=== PATIENT | female | born 1955 | race Caucasian/White ===

== ENCOUNTER → 2018-02-18 14:02 | Outpatient (REF) | payer BC, SELFPAY ==
[2018-02-18 18:38] LABS: Amphetamine/Metha Screen,Urine Negative ng/mL (<1000); Barbiturates Screen,Urine Negative ng/mL (<200); Benzodiazepines Screen,Urine Negative ng/mL (<200); Cannabinoid Screen,Urine Negative ng/mL (<50); Cocaine Screen,Urine Negative ng/mL (<300); Methadone Screen,Urine Negative ng/mL (<300); Opiate Screen,Urine Positive ng/mL (<300); Phencyclidine Screen,Urine Negative ng/mL (<25)
== END ==
LOC: LAB 14:02
PROVIDERS: Visit Provider Emergency Medicine
DX: Z79.899 Other long term (current) drug therapy (principal)
CPT/HCPCS: 80305

== ENCOUNTER → 2018-06-03 17:56 | Outpatient (CLI) | payer BC, SELFPAY ==
[2018-06-03 18:44] LABS: Basophils # 0.1 K/mm3 (0-0.2); Eosinophils # 0.2 K/mm3 (0.0-0.4); Eosinophils % 2.1 % (0.1-12.0); Hematocrit 41.5 % (37.0-47.0); Hemoglobin 13.4 g/dL (12.2-16.2); Lymphocytes # 1.8 K/mm3 (0.7-4.5); Lymphocytes % 20.4 % (10-50); Mean Corpuscular HGB Conc 32.3 g/dL (31.8-35.4); Mean Corpuscular Hemoglobin 30.2 pg (27.0-31.2); Mean Corpuscular Volume 93.5 fl (81-99); Mean Platelet Volume 8.6 fl (7.4-10.4); Monocytes # 0.5 K/mm3 (0.1-1.0); Monocytes % 5.2 % (1.7-9.3); Neutrophils # 6.2 K/mm3 (1.8-7.8); Neutrophils % 71.4 % (37.0-80.0); Platelet Count 291 K/mm3 (142-424); Red Blood Count 4.44 M/mm3 (4.20-5.40); Red Cell Distribution Width 17.5 % (11.5-17.5); White Blood Count 8.6 K/mm3 (4.8-10.8)
[2018-06-03 19:36] LABS: Alanine Aminotransferase 52 U/L (12-78); Albumin Level 3.9 gm/dL (3.4-5.0); Albumin/Globulin Ratio 1.1 (1.1-1.8); Alkaline Phosphatase 114 U/L (46-116); Anion Gap 16.5 mEq/L (5-15); Aspartate Amino Transferase 27 U/L (15-37); Bilirubin,Total 1.1 mg/dL (0.2-1.0); Blood Urea Nitrogen 34 mg/dL (7-18); Calcium 9.1 mg/dL (8.5-10.1); Carbon Dioxide 26 mmol/L (21.0-32.0); Chloride 102 mmol/L (98-107); Chol/HDL Ratio 5.4 (1-3.5); Cholesterol 125 mg/dL (140-200); Creatinine,Serum 1.63 mg/dL (0.55-1.02); Estimated Glomerular Filt Rate 32 ml/min (>60); Free T4 (Free Thyroxine) 1.06 ng/dl (0.76-1.46); GFR (African American) 38 ML/MIN (>60); Globulin 3.4 gm/dl (1.3-3.2); Glucose 125 mg/dL (74-106); HDL Cholesterol 23 mg/dL (29-89); Hemoglobin A1C 5.9 % (0.0-7.0); LDL Cholesterol 40 mg/dL (0-130); Potassium 4.5 mmoL/L (3.5-5.1); Sodium 140 mmol/L (136-145); Thyroid Stimulating Hormone 2.35 uIU/ml (0.358-3.740); Total Protein,Serum 7.3 gm/dL (6.4-8.2); Triglycerides 311 mg/dL (30-200); VLDL Cholesterol 62 mg/dL (0-40)
[2018-06-03 19:45] LABS: Amphetamine/Metha Screen,Urine Negative ng/mL (<1000); Barbiturates Screen,Urine Negative ng/mL (<200); Benzodiazepines Screen,Urine Negative ng/mL (<200); Cannabinoid Screen,Urine Negative ng/mL (<50); Cocaine Screen,Urine Negative ng/mL (<300); Methadone Screen,Urine Negative ng/mL (<300); Opiate Screen,Urine Positive ng/mL (<300); Phencyclidine Screen,Urine Negative ng/mL (<25)
[2018-06-05 06:40] LABS: Creatinine, Urine 62.3 mg/dL (Not Estab.); Microalbumin, Urine 11.4 ug/mL (Not Estab.)
[2018-06-06 08:22] LABS: Vitamin D 25 Hydroxy 20.3 ng/mL (30.0-100.0)
== END ==
PROVIDERS: Visit Provider Emergency Medicine
DX: E11.9 Type 2 diabetes mellitus without complications (principal); Z79.899 Other long term (current) drug therapy; E55.9 Vitamin D deficiency, unspecified
CPT/HCPCS: 80053; 80061; 80305; 82043; 82570; 82652; 83036; 84439; 84443; 85025

== ENCOUNTER → 2018-07-08 14:38 | Outpatient (CLI) | payer BC, SELFPAY ==
--- NOTE | 2018-07-08 14:41 | MR_ITS ---
MR lumbar spine wo con, MR 3-d myelogram/MRCP HISTORY: Low back pain X years. Pain is across low back. ITS.REASON: back pain ORDERING PHYSICIAN: Ferdinand Stapleton MD PATIENT AGE: 62 years Comparison: None TECHNIQUE: Standard multiplanar multiecho sequences are performed without contrast. 3-D MIP and myelographic images are also rendered and reviewed FINDINGS: There is normal alignment. The spinal cord ends at the L1-L2 level. T11-T12: Unremarkable. T12-L1: Mild degenerative disc disease with minimal bulging disc. L1-L2: Unremarkable. L2-L3: Minimal bulging disc L3-L4: Unremarkable. L4-5: Unremarkable. L5-S1: Unremarkable. IMPRESSION: 1. Mild degenerative disc disease at T12-L1 and L2-L3 with minimal bulging disc 2. No disc herniation or canal stenosis or other significant anomalies.
== END ==
PROVIDERS: PCP Emergency Medicine; Visit Provider Emergency Medicine
DX: M54.5 Low back pain (principal)
CPT/HCPCS: 72148; 76376

== ENCOUNTER → 2018-08-17 15:00 | Outpatient (CLI) | payer BC, SELFPAY ==
[2018-08-17 22:28] LABS: Amphetamine/Metha Screen,Urine Negative ng/mL (<1000); Barbiturates Screen,Urine Negative ng/mL (<200); Benzodiazepines Screen,Urine Negative ng/mL (<200); Cannabinoid Screen,Urine Negative ng/mL (<50); Cocaine Screen,Urine Negative ng/mL (<300); Methadone Screen,Urine Negative ng/mL (<300); Opiate Screen,Urine Positive ng/mL (<300); Phencyclidine Screen,Urine Negative ng/mL (<25)
[2018-08-19 17:20] LABS: Microalbumin, Urine 11.9 ug/mL (Not Estab.)
== END ==
PROVIDERS: Visit Provider Emergency Medicine
DX: Z79.899 Other long term (current) drug therapy (principal); E11.9 Type 2 diabetes mellitus without complications; Z79.4 Long term (current) use of insulin
CPT/HCPCS: 80305; 82043

== ENCOUNTER → 2018-09-14 16:33 | Outpatient (CLI) | payer BC, SELFPAY ==
--- NOTE | 2018-09-14 16:35 | MM_ITS ---
MM Dig screening mamm BI w/CAD ORDERING PHYSICIAN : Ferdinand Stapleton MD PATIENT AGE: 62 years GENDER: Female COMPARISON: [facility] mammograms 12/28/2014 February 08, 2017 & 12/31/2015 INDICATION: . Routine screening mammogram. No new complaints. No hormones Patient notes history of Previous abscess. Medial Left breast. Family history. Noncontributory TECHNIQUE: Standard CC and MLO images were obtained. R2 CAD reviewed. Additional CC axillary cc view and cc nipple profile views bilateral FINDINGS: . Moderate density breast. Mild heterogeneous. Mild asymmetry Scattered moderate density fibroglandular elements elements most evident towards superior breast and upper outer quadrant. Similar Overall parenchymal pattern to previous study. RIGHT BREAST:No new findings of significant concern. . Scattered areas of asymmetric density are similar to multiple previous studies. Follow-up right mammogram 1 year adequate. LEFT BREAST: Similar overall parenchymal pattern. However I would note incrementally larger 12.3 mm ovoid density lateral retroareolar region which is perhaps slightly more apparent.- But this may be due to the distal CC projections today which visualizes area to better advantage. . I believe round density has been present on studies dating back to 2013.... Thus Likely reflects a slight enlarging cyst or prominent duct. Would suggest ultrasound to further evaluate along with spot CC and MLO and 90 degrees view left breast. Attempted to evaluate since no previous ultrasounds available IMPRESSION: Left breast 12.3 mm ovoid density at the lateral retroareolar region on cc view. This likely benign features appears perhaps incrementally larger & overall slightly more evident than previous studies.- Suspect benign cyst. ... But would suggest ultrasound and spot views to further evaluate . Right breast Stable right mammogram. No new findings . BI-RADS Category: 0 Need Additional Imaging Evaluation RECOMMENDED FOLLOW-UP: IMM - IMMEDIATE FOLLOW-UP RECOMMENDED (A letter has been sent to the patient regarding results of the study.)
== END ==
PROVIDERS: PCP Emergency Medicine; Visit Provider Emergency Medicine
DX: Z12.31 Encounter for screening mammogram for malignant neoplasm of breast (principal)
CPT/HCPCS: 77067

== ENCOUNTER → 2018-09-14 17:04 | Outpatient (CLI) | payer BC, SELFPAY ==
[2018-09-14 19:00] LABS: Anion Gap 16.2 mEq/L (5-15); Blood Urea Nitrogen 33 mg/dL (7-18); Calcium 9.5 mg/dL (8.5-10.1); Carbon Dioxide 26 mmol/L (21.0-32.0); Chloride 101 mmol/L (98-107); Creatinine,Serum 1.69 mg/dL (0.55-1.02); Estimated Glomerular Filt Rate 30 ml/min (>60); GFR (African American) 37 ML/MIN (>60); Glucose 146 mg/dL (74-106); Potassium 4.2 mmoL/L (3.5-5.1); Sodium 139 mmol/L (136-145)
== END ==
PROVIDERS: Visit Provider Emergency Medicine
DX: E11.9 Type 2 diabetes mellitus without complications (principal); N28.9 Disorder of kidney and ureter, unspecified; Z79.84 Long term (current) use of oral hypoglycemic drugs
CPT/HCPCS: 36415; 80048

== ENCOUNTER → 2018-11-08 14:21 | Outpatient (CLI) | payer BC, SELFPAY ==
[2018-11-08 14:50] LABS: Amphetamine/Metha Screen,Urine Negative ng/mL (<1000); Barbiturates Screen,Urine Negative ng/mL (<200); Benzodiazepines Screen,Urine Negative ng/mL (<200); Cannabinoid Screen,Urine Negative ng/mL (<50); Cocaine Screen,Urine Negative ng/mL (<300); Methadone Screen,Urine Negative ng/mL (<300); Opiate Screen,Urine Positive ng/mL (<300); Phencyclidine Screen,Urine Negative ng/mL (<25)
== END ==
PROVIDERS: Visit Provider Nurse Practitioner Family
DX: Z79.899 Other long term (current) drug therapy (principal)
CPT/HCPCS: 80305

== ENCOUNTER → 2018-11-18 11:37 | Outpatient (CLI) | payer MEDICARE, BC, SELFPAY ==
--- NOTE | 2018-11-18 11:38 | MM_ITS ---
MM Dig mamm DX unilat LT CAD, US breast LT complete INDICATION: Follow-up abnormal mammogram, left breast nodule ORDERING PHYSICIAN: Ferdinand Stapleton MD PATIENT AGE: 62 years COMPARISON: 09/14/2018, 08/18/2017 TECHNIQUE: Problem-solving views of the left breast along with left breast ultrasound FINDINGS: There is a 10 mm rounded nodule within the lateral periareolar region of the left breast at about 2:00. No abnormal calcifications. The margins are slightly obscured medially and inferiorly. Left breast ultrasound: There is a well-circumscribed oval nodule at 1:00 measuring 10 x 10 x 0.4 cm corresponding to the mammographic abnormality. This has some low-level internal echoes but enhanced through transmission of sound and is well-circumscribed and is parallel to the chest wall. The questionable low level echoes could be due to reverberation artifact. This represents a complex cyst or fibroadenoma and has benign features. The nodule is however slightly increased in size compared to older exams. IMPRESSION: Mammographic nodule in the lateral aspect of left breast is felt to represent either a complex cyst or fibroadenoma. Recommend 6 month follow-up due to slight increase in size BI-RADS Category: 3 Probably Benign Finding Short Term Follow-up RECOMMENDED FOLLOW-UP: 6M - 6 MONTH FOLLOW-UP (A letter has been sent to the patient regarding results of the study.)
== END ==
PROVIDERS: PCP Emergency Medicine; Visit Provider Emergency Medicine
DX: R92.8 Other abnormal and inconclusive findings on diagnostic imaging of breast (principal)
CPT/HCPCS: 76641; 77065

== ENCOUNTER → 2019-01-06 17:25 | Outpatient (CLI) | payer MEDICARE, SELFPAY ==
[2019-01-06 18:02] LABS: Basophils # 0.1 K/mm3 (0-0.2); Basophils % 1.1 % (0.1-2.0); Eosinophils # 0.2 K/mm3 (0.0-0.4); Eosinophils % 3.1 % (0.1-12.0); Hematocrit 40.1 % (37.0-47.0); Hemoglobin 13.3 g/dL (12.2-16.2); Lymphocytes # 1.5 K/mm3 (0.7-4.5); Lymphocytes % 25.6 % (10-50); Mean Corpuscular HGB Conc 33.3 g/dL (31.8-35.4); Mean Corpuscular Hemoglobin 31.2 pg (27.0-31.2); Mean Corpuscular Volume 93.7 fl (81-99); Mean Platelet Volume 8.3 fl (7.4-10.4); Monocytes # 0.4 K/mm3 (0.1-1.0); Monocytes % 6.2 % (1.7-9.3); Neutrophils # 3.7 K/mm3 (1.8-7.8); Neutrophils % 64.1 % (37.0-80.0); Platelet Count 263 K/mm3 (142-424); Red Blood Count 4.28 M/mm3 (4.20-5.40); Red Cell Distribution Width 17.3 % (11.5-17.5); White Blood Count 5.8 K/mm3 (4.8-10.8)
[2019-01-06 18:08] LABS: Anion Gap 12.2 mEq/L (5-15); Blood Urea Nitrogen 43 mg/dL (7-18); Calcium 9.6 mg/dL (8.5-10.1); Carbon Dioxide 28 mmol/L (21.0-32.0); Chloride 104 mmol/L (98-107); Creatinine,Serum 2.14 mg/dL (0.55-1.02); Estimated Glomerular Filt Rate 23 ml/min (>60); GFR (African American) 28 ML/MIN (>60); Glucose 168 mg/dL (74-106); Potassium 5.2 mmoL/L (3.5-5.1); Sodium 139 mmol/L (136-145)
[2019-01-06 18:58] LABS: Amphetamine/Metha Screen,Urine Negative ng/mL (<1000); Barbiturates Screen,Urine Negative ng/mL (<200); Benzodiazepines Screen,Urine Negative ng/mL (<200); Cannabinoid Screen,Urine Negative ng/mL (<50); Cocaine Screen,Urine Negative ng/mL (<300); Methadone Screen,Urine Negative ng/mL (<300); Opiate Screen,Urine Positive ng/mL (<300); Phencyclidine Screen,Urine Negative ng/mL (<25)
== END ==
PROVIDERS: Visit Provider Emergency Medicine
DX: E11.9 Type 2 diabetes mellitus without complications (principal); M54.5 Low back pain; Z79.84 Long term (current) use of oral hypoglycemic drugs
CPT/HCPCS: 80048; 80305; 83036; 85025

== ENCOUNTER → 2019-01-11 11:26 | Outpatient (CLI) | payer MEDICARE, SELFPAY ==
[2019-01-11 13:34] LABS: Anion Gap 14.4 mEq/L (5-15); Blood Urea Nitrogen 31 mg/dL (7-18); Calcium 9.6 mg/dL (8.5-10.1); Carbon Dioxide 27 mmol/L (21.0-32.0); Chloride 104 mmol/L (98-107); Creatinine,Serum 1.53 mg/dL (0.55-1.02); Estimated Glomerular Filt Rate 34 ml/min (>60); GFR (African American) 41 ML/MIN (>60); Glucose 145 mg/dL (74-106); Potassium 4.4 mmoL/L (3.5-5.1); Sodium 141 mmol/L (136-145)
== END ==
PROVIDERS: Visit Provider Physician Assistant
DX: E87.5 Hyperkalemia (principal); R79.89 Other specified abnormal findings of blood chemistry
CPT/HCPCS: 36415; 80048

== ENCOUNTER → 2019-02-13 17:59 | Outpatient (CLI) | payer MEDICARE, SELFPAY ==
[2019-02-13 19:05] LABS: Anion Gap 16.5 mEq/L (5-15); Blood Urea Nitrogen 27 mg/dL (7-18); Calcium 9.2 mg/dL (8.5-10.1); Carbon Dioxide 23 mmol/L (21.0-32.0); Chloride 104 mmol/L (98-107); Creatinine,Serum 1.34 mg/dL (0.55-1.02); Estimated Glomerular Filt Rate 40 ml/min (>60); GFR (African American) 48 ML/MIN (>60); Glucose 119 mg/dL (74-106); Potassium 4.5 mmoL/L (3.5-5.1); Sodium 139 mmol/L (136-145)
== END ==
PROVIDERS: Visit Provider Emergency Medicine
DX: R79.89 Other specified abnormal findings of blood chemistry (principal)
CPT/HCPCS: 80048

== ENCOUNTER → 2019-03-10 15:54 | Outpatient (CLI) | payer MEDICARE, MEDICAID, SELFPAY ==
--- NOTE | 2019-03-10 15:58 | XR_ITS ---
PROCEDURE: XR KNEE RT 3V CLINICAL INDICATION: knee COMPARISON: No exams were available for comparison FINDINGS: No fracture or dislocation. No lytic or blastic change. There is normal mineralization. There are mild osteoarthritic changes of the medial compartment and patellofemoral joint. There is a small loose body along the anterior joint space medially measuring 5-6 mm. Other findings:None. IMPRESSION: Mild osteoarthritis with suspected loose body medially Dictated by: Brian Jett MD 03/10/2019 16:33 Electronically signed by Brian Jett MD in [place] 03/10/2019 16:33
== END ==
PROVIDERS: PCP Nurse Practitioner Family; Visit Provider Nurse Practitioner Family
DX: M25.561 Pain in right knee (principal)
CPT/HCPCS: 73562

== ENCOUNTER → 2019-04-07 11:19 | Outpatient (CLI) | payer MEDICARE, MEDICAID, SELFPAY ==
--- NOTE | 2019-04-07 11:23 | XR_ITS ---
PROCEDURE: XR KNEE RT 4V CLINICAL INDICATION: Rt knee pain COMPARISON: XR KNEE RT 3V from 03/10/2019 FINDINGS: No fracture or dislocation. No lytic or blastic change. There is normal mineralization. There are mild osteoarthritic changes involving all 3 compartments. There is a small osteophyte versus loose body along the anterior aspect of the tibia. There is mild generalized vascular calcification IMPRESSION: Mild osteoarthritic changes with small loose body versus osteophyte at the anterior tibial region. Overall no change from 03/10/2019 Dictated by: Brian Jett MD 04/07/2019 12:23 Electronically signed by Brian Jett MD in [place] 04/07/2019 12:23
--- NOTE | 2019-04-07 11:24 | XR_ITS ---
PROCEDURE: XR KNEE LT 4V CLINICAL INDICATION: left knee pain Medial left knee pain COMPARISON: XR KNEE RT 3V from 03/10/2019 FINDINGS: No fracture or dislocation. No lytic or blastic change. There is normal mineralization. Weightbearing views demonstrate slight decrease in the joint space medially with minimal osteophyte formation at the patellofemoral joint and medial compartment. Other findings:Vascular calcification IMPRESSION: Minimal osteoarthritic change Dictated by: Brian Jett MD 04/07/2019 12:21 Electronically signed by Brian Jett MD in [place] 04/07/2019 12:21
== END ==
PROVIDERS: PCP Emergency Medicine; Referring Provider Nurse Practitioner Family; Visit Provider Orthopaedic Surgery
DX: M25.561 Pain in right knee (principal); M25.562 Pain in left knee
CPT/HCPCS: 73564

== ENCOUNTER → 2019-04-11 17:10 | Outpatient (CLI) | payer MEDICARE, MEDICAID, SELFPAY ==
[2019-04-11 19:38] LABS: Amphetamine/Metha Screen,Urine Negative ng/mL (<1000); Barbiturates Screen,Urine Negative ng/mL (<200); Benzodiazepines Screen,Urine Negative ng/mL (<200); Cannabinoid Screen,Urine Negative ng/mL (<50); Cocaine Screen,Urine Negative ng/mL (<300); Methadone Screen,Urine Negative ng/mL (<300); Opiate Screen,Urine Positive ng/mL (<300); Phencyclidine Screen,Urine Negative ng/mL (<25)
== END ==
PROVIDERS: Visit Provider Emergency Medicine
DX: M51.36 Other intervertebral disc degeneration, lumbar region (principal)
CPT/HCPCS: 80305

== ENCOUNTER → 2019-06-09 17:26 | Outpatient (CLI) | payer MEDICARE, MEDICAID, SELFPAY ==
[2019-06-09 18:06] LABS: Amphetamine/Metha Screen,Urine Negative ng/mL (<1000); Barbiturates Screen,Urine Negative ng/mL (<200); Benzodiazepines Screen,Urine Negative ng/mL (<200); Cannabinoid Screen,Urine Negative ng/mL (<50); Cocaine Screen,Urine Negative ng/mL (<300); Methadone Screen,Urine Negative ng/mL (<300); Opiate Screen,Urine Positive ng/mL (<300); Phencyclidine Screen,Urine Negative ng/mL (<25)
== END ==
PROVIDERS: Visit Provider Emergency Medicine
DX: M51.36 Other intervertebral disc degeneration, lumbar region (principal)
CPT/HCPCS: 80305

== ENCOUNTER → 2019-06-28 18:24 | Outpatient (CLI) | payer MEDICARE, OTHER, SELFPAY ==
[2019-06-28 18:52] LABS: Basophils # 0.1 K/mm3 (0-0.2); Basophils % 1.3 % (0.1-2.0); Eosinophils # 0.2 K/mm3 (0.0-0.4); Eosinophils % 2.5 % (0.1-12.0); Hematocrit 39.2 % (37.0-47.0); Hemoglobin 12.5 g/dL (12.2-16.2); Lymphocytes # 1.1 K/mm3 (0.7-4.5); Lymphocytes % 17.6 % (10-50); Mean Corpuscular HGB Conc 31.7 g/dL (31.8-35.4); Mean Corpuscular Volume 94.6 fl (81-99); Mean Platelet Volume 8.9 fl (7.4-10.4); Monocytes # 0.3 K/mm3 (0.1-1.0); Monocytes % 4.3 % (1.7-9.3); Neutrophils # 4.4 K/mm3 (1.8-7.8); Neutrophils % 74.2 % (37.0-80.0); Platelet Count 302 K/mm3 (142-424); Red Blood Count 4.15 M/mm3 (4.20-5.40); Red Cell Distribution Width 18.5 % (11.5-17.5)
[2019-06-28 19:34] LABS: Hemoglobin A1C 5.9 % (0.0-7.0)
[2019-06-28 21:18] LABS: Alanine Aminotransferase 31 U/L (9-52); Albumin Level 4.1 g/dL (3.4-5.0); Albumin/Globulin Ratio 1.3 (1.1-1.8); Alkaline Phosphatase 112 U/L (46-116); Anion Gap 15.2 mEq/L (5-15); Aspartate Amino Transferase 19 U/L (15-37); Bilirubin,Total 1.1 mg/dL (0.2-1.0); Blood Urea Nitrogen 25 mg/dL (7-18); Calcium 9.5 mg/dL (8.5-10.1); Carbon Dioxide 25 mmol/L (21.0-32.0); Chloride 108 mmol/L (98-107); Chol/HDL Ratio 3.7 (1-3.5); Cholesterol 112 mg/dL (140-200); Creatinine,Serum 1.37 mg/dL (0.55-1.02); Estimated Glomerular Filt Rate 39 ml/min (>60); Free T4 (Free Thyroxine) 1.21 ng/dl (0.76-1.46); GFR (African American) 47 ML/MIN (>60); Globulin 3.1 gm/dl (1.3-3.2); Glucose 105 mg/dL (74-106); HDL Cholesterol 30 mg/dL (29-89); LDL Cholesterol 47 mg/dL (0-130); Potassium 5.2 mmoL/L (3.5-5.1); Sodium 143 mmol/L (137-145); Thyroid Stimulating Hormone 2.06 uIU/ml (0.358-3.740); Total Protein,Serum 7.2 g/dL (6.4-8.2); Triglycerides 174 mg/dL (30-200); VLDL Cholesterol 35 mg/dL (0-40)
[2019-06-30 10:48] LABS: Vitamin D 25 Hydroxy 44.6 ng/mL (30.0-100.0)
[2019-06-30 11:01] LABS: Creatinine, Urine 41.3 mg/dL (Not Estab.); Microalbumin, Urine 31.5 ug/mL (Not Estab.)
== END ==
PROVIDERS: Visit Provider Emergency Medicine
DX: E11.9 Type 2 diabetes mellitus without complications (principal); Z79.84 Long term (current) use of oral hypoglycemic drugs
CPT/HCPCS: 80053; 80061; 82043; 82570; 82652; 83036; 84439; 84443; 85025

== ENCOUNTER → 2019-07-07 14:57 | Outpatient (CLI) | payer MEDICARE, OTHER, SELFPAY ==
--- NOTE | 2019-07-07 14:57 | MM_ITS ---
PROCEDURE: MM DIG MAMM DX UNILAT LT CAD CLINICAL INDICATION: 6 mth f/u COMPARISON: DIG MAMM-SCREEN PITO from 09/14/2018 DIG MAMM-DX UNI-LT from 11/18/2018 TECHNIQUE: Standard CC and MLO images and 3D Tomosynthesis was obtained. R2 CAD reviewed. FINDINGS: Previously described well-circumscribed nodule in the upper outer quadrant of the left breast in the periareolar region is again noted and not significantly changed. Some obscuration of its inferior border is noted by glandular tissue. Sonography performed 07/07/2019 demonstrated a well-circumscribed solid nodule for which a benign fibroadenoma is favored. Benign appearing calcifications are noted throughout the breast unchanged. An area of asymmetrical density approximately 8 x 11 millimeters is seen in the middle 1/3 of the medial left breast on the CC view. Density was seen in this region previously. It appears more conspicuous today possibly due to differences in technical factors and compression. A discrete nodule is not confirmed on 2 orthogonal views. Sonography on 07/07/2019 failed to demonstrate a discrete mass. IMPRESSION: BI-RAD Category: 3 Probably Benign Finding Short Term Follow-up FOLLOW-UP: 6M 6Month Follow-up (A letter has been sent to the patient regarding results of the study.) Dictated by: Oscar Sue 07/08/2019 10:30 Electronically signed by Oscar Sue in [place] 07/08/2019 10:30
--- NOTE | 2019-07-07 14:57 | US_ITS ---
PROCEDURE: US BREAST LT COMPLETE CLINICAL INDICATION: 6 mth f/u COMPARISON: BREASTLT US breast LT complete from 11/18/2018 FINDINGS: At the 1 o'clock position near the nipple a well-circumscribed ovoid hypoechoic nodule with some through transmission is noted measuring 9.2 by 9.2 x 4.5 millimeters. On 11/18/2018 this nodule was present and measured 9.6 by 10.6 x 3.7 millimeters. It is felt to be not significantly changed given non comparable imaging planes and technical in accuracy Nirali measurements. A 5.8 x 3.8 x 1.7 millimeter cystic focus is seen in the left breast at 1 o'clock. This measured 5.3 by 3.3 x 1.5 millimeters previously. There was no sonographic correlate for asymmetrical density seen in the middle 1/3 of the medial left breast on mammography. Three separate hyper echoic foci in the axilla measuring up to 1.6 centimeters are most consistent with lymph nodes. IMPRESSION: BI-RADS category 3 probably benign 6 month follow-up ultrasound and mammography are recommended. Dictated by: Oscar Sue 07/08/2019 10:03 Electronically signed by Oscar Sue in [place] 07/08/2019 10:03
== END ==
PROVIDERS: PCP Emergency Medicine; Visit Provider Physician Assistant
DX: R92.8 Other abnormal and inconclusive findings on diagnostic imaging of breast (principal)
CPT/HCPCS: 76641; 77061; 77065; G0279

== ENCOUNTER → 2019-12-05 14:01 | Outpatient (CLI) | payer MEDICARE, SELFPAY ==
[2019-12-06 15:36] LABS: Anion Gap 15.8 mEq/L (5-15); Blood Urea Nitrogen 25 mg/dl (7-17); Calcium 9.6 mg/dl (8.4-10.2); Carbon Dioxide 25 mmol/L (22.0-30.0); Chloride 105 mmol/L (98-107); Estimated Glomerular Filt Rate 41 ml/min (>60); GFR (African American) 50 ML/MIN (>60); Glucose 177 mg/dl (74-100); Potassium 4.8 mmoL/L (3.5-5.1); Sodium 141 mmol/L (136-145)
== END ==
PROVIDERS: Visit Provider Emergency Medicine
DX: E11.9 Type 2 diabetes mellitus without complications (principal); Z79.84 Long term (current) use of oral hypoglycemic drugs
CPT/HCPCS: 80048

== ENCOUNTER → 2020-01-17 13:35 | Outpatient (CLI) | payer MEDICARE, MEDICAID, SELFPAY ==
--- NOTE | 2020-01-17 13:35 | US_ITS ---
PROCEDURE: US BREAST LT COMPLETE CLINICAL INDICATION: 6 mth f/u COMPARISON: US US BREAST LT COMPLETE from 07/07/2019 and bilateral mammograms 01/17/2020 FINDINGS: The oval hypoechoic cystic lesions again seen at the 1 o'clock position measuring 0.9 by 0.9 x 0.5 cm. It is unchanged in size and appearance from the previous exam. There is a very small oval cystic lesion at the 1 o'clock position near the nipple as well measuring 0.5 by 0.3 x 0.2 cm. There are normal appearing nodes in the axilla. IMPRESSION: Stable benign-appearing cystic lesions as described and recommend the patient continue with yearly screening mammography Dictated by: Dr. Gianfranco Barreto MD 02/02/2020 10:09 Dr. Gianfranco Barreto MD in [place] 02/02/2020 10:09
--- NOTE | 2020-01-17 13:35 | MM_ITS ---
PROCEDURE: MM DIG MAMM DX UNILAT LT CAD Digital Breast Tomosynthesis Included CLINICAL INDICATION: 6 mth f/u due 12/2019 COMPARISON: MG MM DIG MAMM DX UNILAT LT CAD from 07/07/2019 US US BREAST LT COMPLETE from 01/17/2020 TECHNIQUE: Standard CC and MLO images and 3D Tomosynthesis was obtained. R2 CAD reviewed. FINDINGS: The smoothly marginated densities again noted just deep to the nipple unchanged in overall appearance and size from the previous exam. Ultrasound performed the same date showed a cystic structure at the 1 o'clock position near the nipple corresponding in size and location to the density on the mammogram. In addition a very tiny additional cystic structure was seen at the 1 o'clock position as well. Scattered benign-appearing microcalcifications are again seen. IMPRESSION: Stable benign-appearing cystic structured just deep to and lateral to the nipple confirmed on ultrasound exam and recommend the patient continue with yearly screening mammography BI-RAD Category: 2 Benign Finding(s) FOLLOW-UP: 6M 6Month Follow-up to return to normal yearly screening schedule (A letter has been sent to the patient regarding results of the study.) Dictated by: Dr. Gianfranco Barreto MD 01/19/2020 09:23 Dr. Gianfranco Barreto MD in [place] 01/19/2020 09:23
== END ==
PROVIDERS: PCP Emergency Medicine; Visit Provider Emergency Medicine
DX: R92.8 Other abnormal and inconclusive findings on diagnostic imaging of breast (principal)
CPT/HCPCS: 76641; 77061; 77065; G0279

== ENCOUNTER → 2020-07-05 17:10 | Outpatient (CLI) | payer MEDICARE, SELFPAY ==
[2020-07-05 17:34] LABS: Basophils # 0.2 K/mm3 (0-0.2); Basophils % 1.4 % (0.1-2.0); Eosinophils # 0.2 K/mm3 (0.0-0.4); Eosinophils % 2.1 % (0.1-12.0); Hemoglobin 13.4 g/dL (12.2-16.2); Lymphocytes # 2.1 K/mm3 (0.7-4.5); Lymphocytes % 19.9 % (10-50); Mean Corpuscular HGB Conc 31.8 g/dL (31.8-35.4); Mean Corpuscular Hemoglobin 31.1 pg (27.0-31.2); Mean Corpuscular Volume 97.9 fl (81-99); Mean Platelet Volume 9.2 fl (7.4-10.4); Monocytes # 0.6 K/mm3 (0.1-1.0); Monocytes % 5.6 % (1.7-9.3); Neutrophils # 7.5 K/mm3 (1.8-7.8); Neutrophils % 71.1 % (37.0-80.0); Platelet Count 256 K/mm3 (142-424); Red Cell Distribution Width 17.7 % (11.5-17.5); White Blood Count 10.5 K/mm3 (4.8-10.8)
[2020-07-05 18:15] LABS: Chloride 102 mmol/L (98-107); Potassium 4.8 mmoL/L (3.5-5.1); Sodium 140 mmol/L (136-145)
[2020-07-05 18:17] LABS: Blood Urea Nitrogen 33 mg/dl (7-17); Estimated Glomerular Filt Rate 32 ml/min (>60); GFR (African American) 39 ML/MIN (>60)
[2020-07-05 18:18] LABS: Alanine Aminotransferase 40 U/L (12-78); Albumin Level 4.4 g/dl (3.5-5.0); Albumin/Globulin Ratio 1.5 (1.1-1.8); Alkaline Phosphatase 104 U/L (38-126); Anion Gap 14.8 mEq/L (5-15); Aspartate Amino Transferase 40 U/L (14-36); Bilirubin,Total 1.4 mg/dl (0.2-1.3); Carbon Dioxide 28 mmol/L (22.0-30.0); Cholesterol 126 mg/dl (140-200); Total Protein,Serum 7.4 g/dl (6.3-8.2); Triglycerides 332 mg/dl (30-150); VLDL Cholesterol 66 mg/dL (0-40)
[2020-07-05 18:19] LABS: Calcium 9.8 mg/dl (8.4-10.2); Chol/HDL Ratio 4.8 (1-3.5); Glucose 241 mg/dl (74-100); HDL Cholesterol 26 mg/dl (40-60)
[2020-07-05 18:29] LABS: Direct LDL Cholesterol 48.17 mg/dL (100-129)
[2020-07-05 18:35] LABS: 25-OH Vitamin D, Total 47.4 ng/mL (30-100)
[2020-07-05 18:36] LABS: Free T4 (Free Thyroxine) 1.17 ng/dl (0.78-2.19)
[2020-07-05 18:49] LABS: Thyroid Stimulating Hormone 2.25 uIU/mL (0.465-4.68)
[2020-07-05 18:58] LABS: Hemoglobin A1C 6.5 % (4.0-6.0)
== END ==
PROVIDERS: Visit Provider Nurse Practitioner Family
DX: E11.9 Type 2 diabetes mellitus without complications (principal); E55.9 Vitamin D deficiency, unspecified; G62.9 Polyneuropathy, unspecified; N28.9 Disorder of kidney and ureter, unspecified; I48.91 Unspecified atrial fibrillation; M51.36 Other intervertebral disc degeneration, lumbar region; E66.9 Obesity, unspecified; Z79.84 Long term (current) use of oral hypoglycemic drugs
CPT/HCPCS: 80053; 80061; 82043; 82306; 83036; 84439; 84443; 85025

== ENCOUNTER → 2020-10-22 14:52 | Outpatient (CLI) | payer MEDICARE, SELFPAY ==
[2020-10-22 15:01] LABS: Chloride 105 mmol/L (98-107); Potassium 5.1 mmoL/L (3.5-5.1); Sodium 139 mmol/L (136-145)
[2020-10-22 15:04] LABS: Anion Gap 16.1 mEq/L (5-15); Blood Urea Nitrogen 29 mg/dl (7-17); Carbon Dioxide 23 mmol/L (22.0-30.0); Estimated Glomerular Filt Rate 41 ml/min (>60); GFR (African American) 50 ML/MIN (>60)
[2020-10-22 15:05] LABS: Calcium 9.6 mg/dl (8.4-10.2); Glucose 238 mg/dl (74-100)
[2020-10-22 17:12] LABS: Benzodiazepines Screen,Urine Negative ng/ml (<200)
[2020-10-22 17:13] LABS: Amphetamine/Metha Screen,Urine Negative ng/ml (<1000); Barbiturates Screen,Urine Negative ng/ml (<200)
[2020-10-22 17:14] LABS: Cannabinoid Screen,Urine Negative ng/ml (<50)
[2020-10-22 17:15] LABS: Cocaine Screen,Urine Negative ng/ml (<300); Methadone Screen,Urine Negative ng/ml (<300)
[2020-10-22 17:16] LABS: Opiate Screen,Urine Positive ng/ml (<300)
[2020-10-22 17:17] LABS: Phencyclidine Screen,Urine Negative ng/ml (<25)
== END ==
PROVIDERS: Visit Provider Emergency Medicine
DX: N28.9 Disorder of kidney and ureter, unspecified (principal); M51.36 Other intervertebral disc degeneration, lumbar region
CPT/HCPCS: 80048; 80305

== ENCOUNTER → 2021-03-12 18:50 | Outpatient (CLI) | payer MEDICARE, SELFPAY ==
[2021-03-12 19:04] LABS: Basophils # 0.1 K/mm3 (0-0.2); Basophils % 1.3 % (0.1-2.0); Eosinophils # 0.2 K/mm3 (0.0-0.4); Eosinophils % 2.9 % (0.1-12.0); Hematocrit 41.2 % (37.0-47.0); Hemoglobin 13.4 g/dL (12.2-16.2); Lymphocytes # 1.3 K/mm3 (0.7-4.5); Lymphocytes % 19.2 % (10-50); Mean Corpuscular HGB Conc 32.6 g/dL (31.8-35.4); Mean Corpuscular Hemoglobin 30.4 pg (27.0-31.2); Mean Corpuscular Volume 93.1 fl (81-99); Mean Platelet Volume 9.7 fl (7.4-10.4); Monocytes # 0.3 K/mm3 (0.1-1.0); Neutrophils % 72.6 % (37.0-80.0); Platelet Count 276 K/mm3 (142-424); Red Blood Count 4.42 M/mm3 (4.20-5.40); Red Cell Distribution Width 18.5 % (11.5-17.5); White Blood Count 6.8 K/mm3 (4.8-10.8)
[2021-03-12 19:16] LABS: Alanine Aminotransferase 28 U/L (12-78); Albumin/Globulin Ratio 1.3 (1.1-1.8); Alkaline Phosphatase 111 U/L (38-126); Anion Gap 16.9 mEq/L (5-15); Aspartate Amino Transferase 35 U/L (14-36); Bilirubin,Total 1.4 mg/dl (0.2-1.3); Blood Urea Nitrogen 23 mg/dl (7-17); Calcium 9.7 mg/dl (8.4-10.2); Carbon Dioxide 25 mmol/L (22.0-30.0); Chloride 102 mmol/L (98-107); Estimated Glomerular Filt Rate 62 ml/min (>60); GFR (African American) 76 ML/MIN (>60); Glucose 204 mg/dl (74-100); Potassium 3.9 mmoL/L (3.5-5.1); Sodium 140 mmol/L (136-145)
[2021-03-12 19:22] LABS: Hemoglobin A1C 7.5 % (4.0-6.0)
[2021-03-12 20:11] LABS: Creatinine,Urine Random 45 mg/dL (Not Estab.); Microalbumin/Creatinine Ratio 102.8
[2021-03-12 20:13] LABS: Amphetamine/Metha Screen,Urine Negative ng/ml (<1000); Barbiturates Screen,Urine Negative ng/ml (<200)
[2021-03-12 20:14] LABS: Benzodiazepines Screen,Urine Negative ng/ml (<200); Cannabinoid Screen,Urine Negative ng/ml (<50)
[2021-03-12 20:15] LABS: Cocaine Screen,Urine Negative ng/ml (<300)
[2021-03-12 20:16] LABS: Methadone Screen,Urine Negative ng/ml (<300); Opiate Screen,Urine Positive ng/ml (<300)
[2021-03-12 20:17] LABS: Phencyclidine Screen,Urine Negative ng/ml (<25)
== END ==
PROVIDERS: Visit Provider Emergency Medicine
DX: M51.36 Other intervertebral disc degeneration, lumbar region (principal); E11.9 Type 2 diabetes mellitus without complications; Z79.84 Long term (current) use of oral hypoglycemic drugs
CPT/HCPCS: 80053; 80305; 82043; 82570; 83036; 85025

== ENCOUNTER → 2021-10-22 06:18 | Outpatient (CLI) | payer MEDICARE, OTHER, SELFPAY ==
[2021-10-21 18:44] LABS: Basophils # 0.1 K/mm3 (0-0.2); Basophils % 1.5 % (0.1-2.0); Eosinophils # 0.3 K/mm3 (0.0-0.4); Eosinophils % 3.8 % (0.1-12.0); Hematocrit 38.9 % (37.0-47.0); Hemoglobin 12.7 g/dL (12.2-16.2); Lymphocytes # 1.4 K/mm3 (0.7-4.5); Lymphocytes % 20.4 % (10-50); Mean Corpuscular HGB Conc 32.6 g/dL (31.8-35.4); Mean Corpuscular Hemoglobin 30.1 pg (27.0-31.2); Mean Corpuscular Volume 92.3 fl (81-99); Mean Platelet Volume 10.7 fl (7.4-10.4); Monocytes # 0.5 K/mm3 (0.1-1.0); Monocytes % 6.6 % (1.7-9.3); Neutrophils # 4.8 K/mm3 (1.8-7.8); Neutrophils % 67.8 % (37.0-80.0); Platelet Count 278 K/mm3 (142-424); Red Blood Count 4.22 M/mm3 (4.20-5.40); Red Cell Distribution Width 20.7 % (11.5-17.5); White Blood Count 7.1 K/mm3 (4.8-10.8)
[2021-10-21 19:13] LABS: Alanine Aminotransferase 23 U/L (12-78); Albumin/Globulin Ratio 1.4 (1.1-1.8); Alkaline Phosphatase 96 U/L (38-126); Anion Gap 14.8 mEq/L (5-15); Aspartate Amino Transferase 29 U/L (14-36); Blood Urea Nitrogen 27 mg/dl (7-17); Calcium 9.8 mg/dl (8.4-10.2); Carbon Dioxide 26 mmol/L (22.0-30.0); Chloride 104 mmol/L (98-107); Chol/HDL Ratio 4.9 (1-3.5); Cholesterol 131 mg/dl (140-200); Estimated Glomerular Filt Rate 45 ml/min (>60); GFR (African American) 54 ML/MIN (>60); Globulin 2.9 g/dL (1.3-3.2); Glucose 164 mg/dl (74-100); HDL Cholesterol 27 mg/dl (40-60); Potassium 4.8 mmoL/L (3.5-5.1); Sodium 140 mmol/L (136-145); Total Protein,Serum 6.9 g/dl (6.3-8.2); Triglycerides 257 mg/dl (30-150); VLDL Cholesterol 51 mg/dL (0-40)
[2021-10-21 19:17] LABS: Amphetamine/Metha Screen,Urine Negative ng/ml (<1000)
[2021-10-21 19:19] LABS: Barbiturates Screen,Urine Negative ng/ml (<200); Benzodiazepines Screen,Urine Negative ng/ml (<200)
[2021-10-21 19:20] LABS: Cannabinoid Screen,Urine Negative ng/ml (<50)
[2021-10-21 19:21] LABS: Cocaine Screen,Urine Negative ng/ml (<300); Methadone Screen,Urine Negative ng/ml (<300)
[2021-10-21 19:22] LABS: Opiate Screen,Urine Positive ng/ml (<300)
[2021-10-21 19:23] LABS: Phencyclidine Screen,Urine Negative ng/ml (<25)
[2021-10-21 19:24] LABS: Direct LDL Cholesterol 58.46 mg/dL (100-129)
[2021-10-21 19:26] LABS: Hemoglobin A1C 6.8 % (4.0-6.0)
[2021-10-21 19:30] LABS: Free T4 (Free Thyroxine) 1.13 ng/dl (0.78-2.19)
[2021-10-21 19:31] LABS: 25-OH Vitamin D, Total 56.2 ng/mL (30-100)
[2021-10-21 19:44] LABS: Thyroid Stimulating Hormone 4.49 uIU/mL (0.465-4.68)
== END ==
PROVIDERS: PCP Emergency Medicine; Visit Provider Emergency Medicine
DX: E66.9 Obesity, unspecified (principal); M51.36 Other intervertebral disc degeneration, lumbar region; I48.91 Unspecified atrial fibrillation; E11.9 Type 2 diabetes mellitus without complications; E55.9 Vitamin D deficiency, unspecified; Z79.84 Long term (current) use of oral hypoglycemic drugs; Z68.41 Body mass index [BMI] 40.0-44.9, adult
CPT/HCPCS: 80053; 80061; 80305; 82306; 83036; 84439; 84443; 85025

== ENCOUNTER → 2022-02-10 16:25 | Outpatient (CLI) | payer MEDICARE, OTHER, SELFPAY ==
--- NOTE | 2022-02-10 16:27 | MM_ITS ---
PROCEDURE INFORMATION: Exam: MG Bilateral Screening 3D Mammography Exam date and time: 02/10/2022 4:21 PM Age: 66 years old Clinical indication: Screening examination. History of benign left excisional biopsy related to abscess. No family history of breast cancer. TECHNIQUE: Imaging protocol: Bilateral Screening tomosynthesis and 2D mammography including computer-aided detection (CAD) when performed. COMPARISON: 1. MG MM DIG MAMM DX UNILAT LT CAD 01/17/2020 1:39 PM 2. MG MM DIG MAMM DX UNILAT LT CAD 07/07/2019 3:12 PM 3. MG DIG MAMM-DX UNI-LT 11/18/2018 1:43 PM 4. MG DIG MAMM-SCREEN PITO 09/14/2018 4:51 PM FINDINGS: MAMMOGRAPHY: Breast composition: There are scattered areas of fibroglandular density. Mass: No suspicious mass. Architectural distortion: None. Calcifications: No suspicious calcifications. Asymmetric density: None. Skin thickening: None. Axillary adenopathy: None. IMPRESSION: No mammographic evidence of malignancy. Annual screening is recommended unless otherwise clinically indicated. ASSESSMENT: BI-RADS Category 1: Negative
== END ==
PROVIDERS: PCP Emergency Medicine; Visit Provider Nurse Practitioner Family
DX: Z12.31 Encounter for screening mammogram for malignant neoplasm of breast (principal)
CPT/HCPCS: 77063; 77067